=== PATIENT | female | born 1985 | race Two or more races ===

== ENCOUNTER 2019-07-23 17:45 | Emergency (ER) | payer MEDICAID ==
[~2019-07-23] VITALS: Ht 162.6 cm; Wt 74.8 kg
--- NOTE | 2019-07-23 20:12 | NUR ---
CALLED TO RM, NO ANSWER.
--- NOTE | 2019-07-23 20:37 | NUR ---
PT AAOX4. AMBULATORY. C/O CP SINCE 1699. PT STATES CP 6/10 PRESSURE RADIATING TO BACK. PT ALSO STATES SHE HAD NOT SLEPT MUCH LAST NIGHT AND MIGHT HAVE BEEN UNDER WORK STRESS. VSS. AWAITING MD FOR EVAL. NO ACUTE DISTRESS NOTED.
[2019-07-23] MEDS ORDERED: LORAZEPAM 1 MG TABLET ONE (20:59)
[2019-07-23] MEDS ORDERED: ASPIRIN 81 MG TAB.CHEW PO ONE (21:00)
[2019-07-23] MEDS ORDERED: ACETAMINOPHEN ES 500 MG TABLET ONE (21:00)
[2019-07-23] MEDS ORDERED: ASPIRIN 81 MG TAB.CHEW ONE (21:00)
[2019-07-23] MEDS ORDERED: ACETAMINOPHEN ES 500 MG TABLET PO ONE (21:00)
[2019-07-23] MEDS ORDERED: LORAZEPAM 1 MG TABLET PO ONE (21:00)
--- NOTE | 2019-07-23 21:05 | NUR ---
MED ASDMINISTERED VSS.
--- NOTE | 2019-07-23 21:14 | NUR ---
LABS COLLECTED BY [employer].
[2019-07-23 21:20] LABS: BASOPHILS % (AUTO) 0.3 % (0.0-2.0); EOSINOPHILS % (AUTO) 0.8 % (0.0-6.0); HEMATOCRIT 39 % (33-45); HEMOGLOBIN 13.1 g/dL (11.5-14.8); LYMPHOCYTES % (AUTO) 30.8 % (20.0-44.0); MEAN CORPUSCULAR HGB CONC 33 g/dl (31.0-36.0); MEAN CORPUSCULAR VOLUME 90 fL (82-100); MONOCYTES # (AUTO) 0.5 /CMM (0.1-1.30); MONOCYTES % (AUTO) 7.8 % (2.0-12.0); NEUTROPHILS # (AUTO) 3.9 /CMM (1.8-8.9); NEUTROPHILS % (AUTO) 60.3 % (43.0-81.0); PLATELET COUNT (AUTO) 349 /CMM (150-450); RED BLOOD CELL COUNT(AUTO) 4.36 MIL/uL (4.0-5.2); WHITE BLOOD COUNT (AUTO) 6.5 K/uL (4.3-11.0)
[2019-07-23 21:24] LABS: APPEARANCE,URINE Clear (CLEAR); BILIRUBIN,URINE Negative (NEGATIVE); BLOOD, URINE Negative Ery/uL (NEGATIVE); COLOR,URINE Yellow (YELLOW); KETONES,URINE Negative (NEGATIVE); LEUKOCYTE ESTERASE ,URINE Negative (NEGATIVE); NITRITE, URINE Negative (NEGATIVE); PROTEIN,URINE Negative (NEGATIVE); UGLUCOSE Negative (NEGATIVE); UROBILINOGEN,URINE 0.2 EU/dL (0.2)
[2019-07-23 21:24] LABS: CALCIUM, SERUM 9.1 mg/dL (8.5-10.1); CARBON DIOXIDE 30 mmol/L (21-32); CHLORIDE 103 mmol/L (98-107); CREATININE 0.7 mg/dL (0.6-1.3); GLUCOSE 92 mg/dL (74-106); POTASSIUM 3.5 mmol/L (3.5-5.1); SODIUM SERUM 139 mmol/L (136-145); UREA NITROGEN, BLOOD 12 mg/dL (7-18)
--- NOTE | 2019-07-23 21:24 | NUR ---
XRAY AT BEDSIDE
[2019-07-23 21:36] LABS: ALANINE AMINOTRANSFERASE 44 U/L (12-78); ALBUMIN 4.1 g/dL (3.4-5.0); ALKALINE PHOSPHATASE 47 U/L (46-116); ASPARTATE AMINOTRANSFERASE 20 U/L (15-37); BILIRUBIN,DIRECT 0.1 mg/dL (0.0-0.2); BILIRUBIN,TOTAL 0.2 mg/dL (0.2-1.0); TOTAL PROTEIN, SERUM 7.9 g/dL (6.4-8.2)
--- NOTE | 2019-07-23 21:37 | NUR ---
PT STATED SHE FEELS BETTER. VSS.
--- NOTE | 2019-07-23 22:12 | NUR ---
VSS. RESTING COMFORTABLY.
[2019-07-23 22:37] VITALS: BP 127/63
--- NOTE | 2019-07-23 22:37 | NUR ---
Patient discharged to home in stable condition. Written and verbal after care instructions given. Patient verbalizes understanding of instruction. ambulatory with a steady gait noted. pt [id number] no acute distress noted, resp even and unlabored.
== END 2019-07-23 22:38 | disposition home or self-care (01) ==
LOC: ER 17:52
DX: F41.0 Panic disorder [episodic paroxysmal anxiety] (principal); R07.89 Other chest pain; F43.9 Reaction to severe stress, unspecified; E86.0 Dehydration; Z90.49 Acquired absence of other specified parts of digestive tract
CPT/HCPCS: 36415; 71045-TC; 80048-TC; 80076-TC; 81000-TC; 84484-TC; 84703-TC; 85025-TC